=== PATIENT | male | born 1955 ===

== ENCOUNTER → 2019-02-09 | Outpatient (REF) ==
--- NOTE | 2019-02-09 11:36 | REP ---
Clinical: Pain and disability. Technique: AP, lateral, coned-down views of the lumbosacral spine. Comparison: None. Findings: Early advanced degenerative disc osteophyte complex at L4-5 and L5-S1 includes endplate sclerosis, osteophytosis, and hypertrophic facet changes along with grade 1 retrolisthesis at L4-5. Mild/moderate degenerative changes throughout the remainder of the visualized lumbar spine includes osteophyte formation and straightening of normal lordosis. There is no evidence for acute fracture / compression injury. Impression: Mild/advanced multilevel degenerative changes predominantly involving L4-5 and L5-S1. Electronically Signed by Nilesh Bocanegra MD 02/09/2019 11:28 A
== END ==
LOC: M SMT 11:13
PROVIDERS: ATTEND Internal Medicine
DX: Z00.00 Encounter for general adult medical examination without abnormal findings (principal)